=== PATIENT | female | born 1940 | race Caucasian/White ===

== ENCOUNTER 2021-04-12 12:40 | Emergency (ER) | payer MEDICARE, SELFPAY ==
[2021-04-12] VITALS (11 sets, daily range): BP systolic 161–184; BP diastolic 70–94; PULSE 62–72; RESP 11–21; TEMP 36.7; O2SAT 98–100
--- NOTE | ~2021-04-12 | XR_ITS ---
XR chest 2V DATE: 04/12/2021 13:51 INDICATION: Hypertension. History of atrial fibrillation and cardiac stents. TECHNIQUE: PA and lateral views COMPARISON: None FINDINGS: Normal heart size. Aortic calcification and tortuosity. No hilar or mediastinal enlargement . Lungs are clear of infiltrate or consolidation. There is old pulmonary granulomatous disease. No pl eural effusion or pulmonary vascular congestion or pneumothorax. Degenerative change of the thoracic and lumbar spine. Osteopenia. Status post cholecystectomy. IMPRESSION: No active cardiopulmonary disease Reviewed, dictated and finalized at location A.
--- NOTE | 2021-04-12 13:18 | ECG_ITS ---
Measurements Intervals [place] Rate: 67 P: 56 CT: 194 QRS: 48 QRSD: 98 T: 63 QT: 409 QTc: 434 Interpretive Statements SINUS RHYTHM BASELINE ARTIFACT- III NORMAL ECG Electronically Signed On 04-12-2021 13:44:04 CDT by Jean Granados D.O.
[2021-04-12 14:41] LABS: Basophils Absolute Auto 0.1 K/mm3 (0.0-0.1); Basophils Percent Auto 0.8 % (0.2-1.2); Eosinophils Absolute Auto 0.1 K/mm3 (0-0.3); Eosinophils Percent Auto 1.6 % (0-4.4); Hematocrit 38.7 % (37.0-47.0); Hemoglobin 12.8 g/dL (12.0-15.0); Immature Granulocyte Absolute 0.02 K/mm3 (0.00-0.031); Immature Granulocyte Percent A 0.3 % (0-0.5); Lymphocytes Absolute Auto 1.07 K/mm3 (0.9-3.2); Lymphocytes Percent Auto 17.3 % (18.3-44.2); Mean Corpuscular HGB Conc 33.1 g/dl (32-36); Mean Corpuscular Hemoglobin 30.5 pg (26-34); Mean Corpuscular Volume 92.4 fl (80-100); Mean Platelet Volume 11.6 fl (7.4-10.4); Monocytes Absolute Auto 0.5 K/mm3 (0.1-0.6); Monocytes Percent Auto 8.8 % (2.6-8.5); Neutrophils Absolute Auto 4.4 K/mm3 (1.3-6.7); Neutrophils Percent Auto 71.2 % (45.5-73.1); Platelet Count Result 152 k/mm3 (150-375); Red Blood Count 4.19 M/mm3 (4.2-5.4); Red Cell Distribution Width 13.2 % (11.5-14.5); White Blood Count 6.2 K/mm3 (4.5-10.0)
[2021-04-12 14:50] LABS: Anion Gap 10 mmol/L (8-16); Blood Urea Nitrogen 18 mg/dL (7-17); Calcium 9.5 mg/dL (8.4-10.2); Carbon Dioxide 29 mmol/L (22-30); Chloride 96 mmol/L (98-107); Estimated CRCL calculation 54 ml/min; Estimated Glomerular Filt Rate > 60; Glucose 135 mg/dL (65-105); Potassium 4.3 mmol/L (3.4-5.0); Sodium 135 mmol/L (137-145)
[2021-04-12 14:57] LABS: INR 1.1
[2021-04-12 14:58] LABS: Partial Thromboplastin Time 33.7 SECONDS (22.3-36.8)
[2021-04-12 15:01] LABS: Troponin I < 0.012 ng/mL (0.000-0.034)
--- NOTE | 2021-04-12 15:47 | ED.GENADULT ---
HPI - General Adult General Chief complaint: Recheck/Abnormal Lab/Rx Stated complaint: htn, sob, craven Time Seen by Provider: 04/12/21 14:31 History of Present Illness HPI narrative: Patient is an 80-year-old female who presents ER for further evaluation of her hypertension. Reports she took her blood pressure earlier in the day while having headache and her systolic blood pressure was in the 170s and her diastolic blood pressure got as high as low 100s. No chest pain or chest pressure. Has brief episode of shortness of breath that is now resolved. She takes sotalol as well as lisinopril HCTZ. Denies increased stress. Currently in town visiting and is driving back to [place] tomorrow. Patient reports is unknown last time she took her own blood pressure several months ago. She reports she goes to the doctor and has whitecoat syndrome today disregard elevated blood pressures. Related Data Home Medications Medication Instructions Recorded Confirmed ferrous sulfate 80 mg PO DAILY 04/12/21 04/12/21 hydrochlorothiazide 25 mg PO DAILY 04/12/21 04/12/21 lansoprazole [Prevacid] 30 mg PO BID 04/12/21 04/12/21 lisinopril 04/12/21 montelukast [Singulair] 10 mg PO QPM 04/12/21 04/12/21 potassium chloride meq PO 04/12/21 rivaroxaban [Xarelto] 20 mg PO QPM 04/12/21 sotalol 80 mg PO DAILY 04/12/21 04/12/21 Allergies Allergy/AdvReac Type Severity Reaction Status Date / Time Penicillins Allergy Hives Verified 04/12/21 14:07 azithromycin AdvReac Other Verified 04/12/21 14:07 Sulfa (Sulfonamide AdvReac Gastrointestinal Verified 04/12/21 14:08 Antibiotics) Upset Review of Systems Review of Systems: All systems reviewed & are unremarkable except as noted in HPI and below Constitutional: Constitutional: Denies chills, Denies fever(s) and Denies weakness Eyes: Eyes: Denies change in vision and Denies photophobia ENT: Denies nasal congestion and Denies sore throat Cardiovascular: Cardiovascular: Denies chest pain, Denies rapid heart rate and Denies radiating jaw, neck or arm pain Respiratory: Respiratory: Denies cough and Reports dyspnea Gastrointestinal: Gastrointestinal: Denies nausea and Denies vomiting Neurologic: Denies syncope, Reports headache(s), Denies focal weakness and Denies numbness PMFSH Past Medical History Medical History (Updated 04/12/21 @ 15:59 by Hakeem Fry MD) Atrial fibrillation Coronary artery disease Hyperlipidemia Hypertension Surgical History Surgical History (Updated 04/12/21 @ 15:49 by Hakeem Fry MD) History of percutaneous coronary intervention Social History Social History (Updated 04/12/21 @ 15:49 by Hakeem Fry MD) Smoking status: Never smoker Exam Narrative: Exam Narrative: GENERAL: Well-appearing, well-nourished, and in no acute distress. HEAD: Normocephalic, atraumatic. ENT: Mucous membranes moist. CHEST: Clear to auscultation. No respiratory distress. HEART: Regular rate and rhythm. Normal peripheral pulses. ABDOMEN: Soft, nontender, nondistended. EXTREMITIES: Normal range of motion. No edema. SKIN: Warm, dry, no rash. NEURO: Alert and oriented x3. PSYCH: Normal mood and affect. Course Course Emergency Course: Unremarkable work-up. Recommend increasing patient's lisinopril from 10 mg to 20 mg. She has follow-up in 5 days. Vital Signs Vital signs: Vital Signs Temperature 98.1 F 04/12/21 13:09 Pulse Rate 72 04/12/21 13:09 Respiratory Rate 18 04/12/21 13:09 Blood Pressure 170/70 H 04/12/21 13:09 Pulse Oximetry 99 04/12/21 13:09 Temperature 98.1 F 04/12/21 13:09 Pulse Rate 71 04/12/21 15:46 Respiratory Rate 19 04/12/21 15:46 Blood Pressure 176/94 H 04/12/21 15:46 Pulse Oximetry 100 04/12/21 15:46 Medical Decision Making Vital Signs Vital Signs: Vital Signs Temperature 98.1 F 04/12/21 13:09 Pulse Rate 72 04/12/21 13:09 Respiratory Rate 18 04/12/21 13:09 Blood Pressure 170/70 H
== END 2021-04-12 16:15 | disposition home or self-care (01) ==
PROVIDERS: Emergency Provider Emergency Medicine
DX: I10 Essential (primary) hypertension (principal); I48.91 Unspecified atrial fibrillation; I25.10 Atherosclerotic heart disease of native coronary artery without angina pectoris; E78.5 Hyperlipidemia, unspecified; Z79.01 Long term (current) use of anticoagulants
CPT/HCPCS: 36415; 71046; 80048; 84484; 85025; 85610; 85730; 93005; 99284